=== PATIENT | male | born 1970 | race Caucasian/White ===

== ENCOUNTER 2022-04-03 06:51 | Day surgery (SDC) | payer MEDICAID ==
[~2022-04-03] VITALS: Ht 177.8 cm; Wt 74.8 kg
[2022-04-03] MEDS ORDERED: SIMETHICONE 40 MG/0.6 ML ML ONE (06:56)
[2022-04-03] MEDS ORDERED: BENZOCAINE 20% 0.5mL UD SPRAY MM ONE (07:48)
[2022-04-03] MEDS: MIDAZOLAM HCL 5 MG/5 ML VIAL ONE ×4 (08:08→08:18)
[2022-04-03] MEDS: MEPERIDINE 100 MG INJ. 100 MG/ML VIAL ONE ×3 (08:08→08:31)
[2022-04-03] MEDS ORDERED: ONDANSETRON HCL 4 MG/2 ML VIAL ONE (08:32)
[2022-04-03 14:09] VITALS: BP_SYST 131
== END 2022-04-03 10:10 | disposition home or self-care (01) ==
LOC: SDS 06:51 → SMU 06:52 → SDS 10:10
PROVIDERS: ATTEND Internal Medicine
DX: Z12.11 Encounter for screening for malignant neoplasm of colon (principal); K70.30 Alcoholic cirrhosis of liver without ascites; K57.30 Diverticulosis of large intestine without perforation or abscess without bleeding; K64.8 Other hemorrhoids; Z79.899 Other long term (current) drug therapy; Z20.822 Contact with and (suspected) exposure to COVID-19
CPT/HCPCS: 36415 ×2; 43235; 45378; 87426; 99152; 99153; G0378; J2175; J2250; J2405; U0003